=== PATIENT | female | born 1930 | race Caucasian/White ===

== ENCOUNTER 2016-12-02 11:56 | Inpatient (IN) ==
[2016-12-02] MEDS ORDERED: ONDANSETRON 4 MG/2 ML VIAL IV STA (12:50)
[2016-12-02] MEDS ORDERED: SODIUM CHLORIDE 0.9% 500 ML IV STA (12:50)
[2016-12-02 12:51] LABS: Basophils # 0.1 10*3/uL (0.0-0.2); Basophils % 1.2 % (0.0-0.8); Eosinophils # 0.2 10*3/uL (0.0-0.87); Eosinophils % 1.6 % (0.00-10.9); Hematocrit 38.3 VOL% (35.7-47.0); Hemoglobin 12.5 GM/DL (12.0-16.0); Immature Granulocytes % 0.4 %; Immature Granulocytes Absolute 0.04 #; Lymphocytes # 1.5 10*3/uL (1.4-4.0); Lymphocytes % 14.4 % (21.3-54.2); Mean Corpuscular HGB Conc 32.6 GM/DL (32-36); Mean Corpuscular Hemoglobin 28 PG (27-34); Mean Corpuscular Volume 85.3 FL (87-102); Mean Platelet Volume 11.2 FL (9.6-12.0); Monocytes # 0.9 10*3/uL (0.11-0.8); Monocytes % 8.9 % (1.7-12.7); Neutrophils # 7.6 10*3/uL (1.4-7.4); Neutrophils % 73.5 % (38.7-73.9); Platelet Count 191 T/CUMM (130-400); Red Blood Count 4.49 MC/CUMM (3.8-5.5); Red Cell Distribution Width 15.1 % (9.3-17.3); White Blood Count 10.4 T/CUMM (4-12)
[2016-12-02 12:57] LABS: PT Patient Result 10.7 SECS; Partial Thromboplastin Time 23.6 SECS (0-40)
[2016-12-02 13:06] LABS: Alanine Aminotransferase 24 U/L (13-56); Albumin 3.3 G/DL (3.4-5.0); Alkaline Phosphatase 101 U/L (45-117); Aspartate Amino Transferase 30 U/L (0-37); Blood Urea Nitrogen 23 MG/DL (7-18); Calcium 8.9 MG/DL (8.5-10.1); Glucose 120 MG/DL (74-106); Magnesium 2.1 MG/DL (1.8-2.4); Osmolality,Calculated 287.1 MOS/KG (273-304); Potassium 3.9 MMOL/L (3.5-5.1); Sodium 142 MMOL/L (136-145); Total Protein 6.8 G/DL (6.4-8.3); Troponin I Only < 0.015 NG/ML (0.00-0.045)
--- NOTE | 2016-12-02 13:07 | CT Report ---
Exam: CT scan of brain without contrast Date: 12/02/2016 Indication: Altered mental status Comparison: 10/15/2016 Patient's classification: Emergency department Technical: Images were obtained from the skull base to the vertex without the use of intravenous contrast. Dose reduction was performed with decreasing kv and mA and automated exposure Total DLP: 997.9 mGy*cm Findings: There is normal appearance of the brainstem. Some atrophy within the cerebellum. There is a large area of decreased attenuation in the right frontal parietal lobe consistent with an area of infarction. Old infarction involving the right and left basal ganglia present. Small vessel changes are present. The ventricles are mildly enlarged with atrophy. No obvious hemorrhage present. Impression: 1. Subacute infarction involving the right frontal parietal lobe without obvious hemorrhage. This appears to involve the right middle cerebral artery distribution. 2. 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 Global Atrophy Critical test report called to Dr. Cordon in the emergency room. PROCEDURE INTERPRETED AT [facility] DEPARTMENT OF RADIOLOGY Final Report Signed by: Dr. Dylon Bucio
--- NOTE | 2016-12-02 13:09 | Emergency Department Note ---
IPete Mantricia, am scribing for, and in the presence of, Luke Cordon MD 12:58. Bravo Her Charles R, MD, personally performed the services described in this documentation, ascribed by Tata Freeman in my presence, and it is both accurate and complete . Arrival - Arrival Chief Complaint: Neuro ED Nursing Triage Note: last time seen normal status was yesterday evening around 1829, family found pt this way today,. accu check 100mg/dl, gcs 10, per family normally walks, but hx of alzhiemers some normal mental status confused, pts last dose eliquis last wednesday, fell wednesday, complained of L hip pain that day Mode of Arrival: Stretcher Limitations: No Limitations Source: Patient Time Seen by Provider: 12/02/16 12:29 - History of Present Illness HPI Narrative: Pt is an 86 y/o white female carried to ED by EMS for evaluation of massive CVA. Pt was last seen normal status yesterday evening around 1829. Daughter states that yesterday family along with pt was heading back from a trip and pt was having the best time. She states that pt ate an entire burger and fries yesterday; she had never done this before. Once riding again in the car, pt dosed off and once home, daughter could not wake pt and she was stiff to move. Since being home, daughter reports that pt has not been able to move her left side. Daughter states she knew something was wrong when she checked to see if pt had tampered with her diaper through the night and she had not; that is something that she normally does. Pt's last dose of Eliquis was last Wednesday, she fell Wednesday and has complained of lower hip pain since then. Family reports that pt has had A-fib since her 30s. Intubation was discussed with family and they decided DNR. They are aware that is soon. There were no other complaints reported. y Onset (ago): hour(s) Severity: moderate Severity scale (1-10): 8 Allergies/Adverse Reactions: Allergies Allergy/AdvReac Type Severity Reaction Status Date / Time codeine Allergy Unknown/Unable Verified 10/15/16 09:07 to obtain sulfamethoxazole Allergy RASH Unverified 12/02/16 12:10 [From Bactrim] trimethoprim [From Bactrim] Allergy RASH Unverified 12/02/16 12:10 Home Medications: Home Medications Medication Instructions Recorded Confirmed Type Alendronate [Fosamax] 70 mg PO Q7DAY@0730 10/15/16 12/02/16 History Apixaban [Eliquis] 2.5 mg PO BID 10/15/16 12/02/16 History Atorvastatin [Lipitor] 20 mg PO BEDTIME 10/15/16 12/02/16 History Digoxin [Digoxin] 125 mcg PO MOWEFR 10/15/16 12/02/16 History Lisinopril [Lisinopril] 5 mg PO DAILY PRN 10/15/16 12/02/16 History Review of System - Review of System 12 point system: reviewed and no additional remarkable complaints except as stated - Review of System Constitutional: Present: other (massive CVA). Absent: chills, diaphoresis, fever Eyes: Absent: discharge, pain Head/Ears/Nose/Throat: Absent: earache, epistaxis, nasal drainage Respiratory: Absent: cough, respiratory distress, wheezing Cardiovascular: Absent: chest pain, palpitations Gastrointestinal: Absent: abdominal pain, nausea Genitourinary female: Absent: abnormal menses, dysuria Musculoskeletal: Absent: arm pain, back pain, leg pain, neck pain Skin: Absent: rash, lesions Exam Vital Signs: Vital Signs Temperature 97.4 F L 12/02/16 11:56 Pulse Rate 148 H 12/02/16 11:56 Respiratory Rate 34 H 12/02/16 11:56 Blood Pressure 162/108 12/02/16 11:56 O2 Sat by Pulse Oximetry 94 L 12/02/16 11:56 - General Exam limited due to: other (massive CVA; GCS around 8) - ENT ENT exam: Present: other (gurgling; thick sputum in mouth) - Respiratory Respiratory exam: Present: other (apneic spells) - Cardiovascular Cardiovascular exam: Present: normal rhythm, tachycardia, other (6-10 secs A-fib ) Course Course Narrative: Long talk with family patient is a DNR. She is having apneic episodes of 6-10 seconds. Patient possibly aspirated as well. Patient had a very large right- sided stroke. This was medically managed to comfort care measures. Patient is not a candidate for any type of intervention - Consultations Consultation #1: Hospitalist will admit patient for comfort care measures Time: 13:08 Results - Labs CBC & BMP: 12/02/16 12:28 12/02/16 12:28 Lab Results: I have reviewed the patients labs Labs: Laboratory Tests 12/02/16 12:28 MCV 85.3 L Lymph % (Auto) 14.4 L Baso % (Auto) 1.2 H Neut # (Auto) 7.6 H [place] # (Auto) 0.9 H Critical Care Time Critical Care Time: Yes Total Critical Care Time: 60 Disposition Clinical Impression: Cerebrovascular accident, Left sided flaccid weakness, Left-sided paralysis, Apneic episode, History of fall Case discussed with: patient, patient's family Disposition: Still a Patient Time of Disposition: 13:09
[2016-12-02] MEDS ORDERED: ONDANSETRON 4 MG/2 ML VIAL ONE (13:12)
--- NOTE | 2016-12-02 13:19 | XRay Report ---
Exam: XR chest 1V portable Date: 12/02/2016 12:40 PM Indication: Altered mental status CVA symptoms status post fall Comparison: 10/15/2016 Findings: Cardiomegaly is present. Cardiac pacing device place from a left-sided approach with a right ventricular lead. Mild shunt vascularity. There is calcification in tracheobronchial tree. Tiny low volume left effusion present. Impression: 1. Cardiomegaly low volume left effusion and cardiac pacing device with mild decompensation and mild interstitial edema PROCEDURE INTERPRETED AT [facility] DEPARTMENT OF RADIOLOGY Final Report Signed by: Dr. Dylon Bucio
--- NOTE | 2016-12-02 13:21 | XRay Report ---
Exam: XR hip 2v w pelvis LT Date: 12/02/2016 12:40 PM Indication: Left hip pain bruise secondary to fall Comparison: None AP pelvis and AP frog-leg view of the left hip 3 images Findings: Phleboliths present true pelvis. The pubic rami are intact. The femoral head and neck regions are demonstrated with single plane on the right and 2 planes on the left hip. There is soft tissue swelling over the left iliac wing. The sacrum and SI joints and iliac crest are otherwise intact. Degenerative change present on the lumbosacral spine. Impression: 1. Soft tissue swelling over the left iliac wing 2. No obvious fractures of the pelvis or left hip 3. 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 Dylon Bucio
[2016-12-02] MEDS ORDERED: ACETAMINOPHEN 325 MG SUPP RECTAL PRN (13:41)
[2016-12-02] MEDS ORDERED: MORPHINE 2 MG/1 ML SYRINGE IV PRN (13:41)
[2016-12-02 13:57] LABS: Apearance,Urine CLEAR (Clear); Bilirubin,Urine Negative (Negative); Blood, Urine Negative (Negative); Glucose,Urine (UA) Negative (Negative); Hyaline Casts,Urine 1 /LPF (0-3); Ketones,Urine Negative (Negative); Nitrite,Urine Negative (Negative); Protein,Urine Negative; RBC,Urine 1 /HPF (0-4); Urine Color Yellow (Yellow); Urine Specific Gravity 1.012 (1.001-1.035); Urine Urobilinogen < 2.0 EU/DL (0.2-1.0); WBC,Urine 1 /HPF (0-6)
--- NOTE | 2016-12-02 14:05 | Hospitalist History & Physical ---
Assessment and Plan (1) Palliative care patient Status: Acute Assessment and plan: comfort measures only. home with hospice tomorrow is her daughter's plan. palliative/hospice care. Current Visit: Yes (2) Cerebrovascular accident Status: Acute Current Visit: Yes (3) Apneic episode Status: Acute Current Visit: Yes History of Present Illness Chief complaint: stroke History of present illness: Ms. Lafleur is a 86 year old female who had a stroke yesterday between 6:30 and 7pm on her way back from a day in [place] with her daughter. At baseline she is severely demented and her speech does not always make sense, and she is sometimes able to walk with a walker or cane and other times cannot walk. She needs assistance with her ADLs. Her anticoagulation for stroke prophylaxis (afib) was stopped because she falls. When she fell asleep in the car and then had to be carried into the house without waking her daughter began to wonder if she had had a stroke. This morning when the patient had slept 14 hours and would not rouse, she called EMS to bring her to the ER. At this time Mrs Lafleur is unresponsive to voice or touch and is frequently apneic. She moved her left leg a bit spontaneously. Her daughter wants her to be comfort measures only and wants to take her home with hospice tomorrow if she can. Home Medications Medication Instructions Recorded Confirmed Type Alendronate [Fosamax] 70 mg PO Q7DAY@0730 10/15/16 12/02/16 History Apixaban [Eliquis] 2.5 mg PO BID 10/15/16 12/02/16 History Atorvastatin [Lipitor] 20 mg PO BEDTIME 10/15/16 12/02/16 History Digoxin [Digoxin] 125 mcg PO MOWEFR 10/15/16 12/02/16 History Lisinopril [Lisinopril] 5 mg PO DAILY PRN 10/15/16 12/02/16 History Allergies Allergy/AdvReac Type Severity Reaction Status Date / Time codeine Allergy Unknown/Unable Verified 10/15/16 09:07 to obtain sulfamethoxazole Allergy RASH Unverified 12/02/16 12:10 [From Bactrim] trimethoprim [From Bactrim] Allergy RASH Unverified 12/02/16 12:10 Medical,Surgical,& Family Hx - Medical History Cardio: History of: Cardiac Dysrhythmia (AFIB), Pacemaker Neurology: History of: Dementia - Family History Family History: Reports;: Family Hypertension - Social History Smoking Status: Never smoker Lives With:: Children ROS unobtainable: due to encephalopathy (from acute stroke) Exam - Constitutional General appearance: normal weight (lying propped on stretcher, mouth open, eyes closed, does not wake to voice or touch,) - Respiratory Respiratory exam: Present: rhonchi - Cardiovascular Cardiovascular exam: Present: irregular rhythm - GI/Abdominal GI/Abdominal exam: Present: normal bowel sounds, soft - Extremities Exam Extremities exam: Absent: edema - Neurological Exam Neurological exam: Present: other (moves let leg occassionally) - Skin Skin exam: Absent: warm (cool) Results - Labs CBC & BMP: 12/02/16 12:28 12/02/16 12:28 Lab Results: I have reviewed the past 24 hour labs - Diagnostic Findings Procedure: CT: image reviewed by me, report reviewed by me (subacute infarct r frontoparietal lobe, MCA distribution)
[2016-12-03 07:29] VITALS: BP 142/73
--- NOTE | 2016-12-03 08:20 | EKG Report ---
Stationary ECG Study [facility] Emergency Department ER Test Date: 12/02/2016 12:32 PM Pat Name: ADONIS BATES Department: Room: 433 Gender: F [employer]: : [id number] Requested by: Luke Nicole Order Number: [id number] Reading MD: JANINA LEÓN Intervals [place] Rate: 115 P: 999 IN: 0 QRS: 35 QRSD: 87 T: -20 QT: 328 QTc: 396 Interpretive Statements ATRIAL FIBRILLATION WITH RAPID VENTRICULAR RESPONSE SEPTAL MYOCARDIAL INFARCTION, PROBABLY OLD Electronically Signed On 12-03-16 11:18:00 CDT by JANINA LEÓN [email or web address]
--- NOTE | 2016-12-03 09:54 | Discharge Summary ---
Hospital Course - Hospital Course Hospital Course: The patient was admitted to the hospital with lethargy and aphasia. The patient was found to have large embolic stroke. Due to advanced age and risk of bleeding the patient did not receive TPA. The patient's daughter led the family consensus for hospice care with comfort measures. The patient is now ready for discharge home and appropriate counseling was performed. Discharge time including counseling and arrangements of discharge plans required 1 hour 15 minutes. - Time spent with patient Time with patient DS: Greater than 30 minutes Diagnosis - Discharge Diagnosis (1) Cerebrovascular accident Status: Acute Discharge Plan - Discharge Data Disposition: Hospice - Home Condition at Discharge: Stable - Discharge Medications New Scopolamine 1.5 mg Patch [Transderm Scop 1.5 mg/72 hr Patch] 1 patch TRANSDERM Q3DAY #4 patch LORazepam [Lorazepam Intensol] 1 mg PO Q2H PRN #60 ml PRN Reason: Agitation Morphine Sulfate [Morphine Conc Liquid] 10 mg PO Q2H PRN #100 ml PRN Reason: Pain Discontinued Atorvastatin [Lipitor] 20 mg PO BEDTIME Alendronate [Fosamax] 70 mg PO Q7DAY@0730 Lisinopril [Lisinopril] 5 mg PO DAILY PRN PRN Reason: INCREASED BP Digoxin [Digoxin] 125 mcg PO MOWEFR Apixaban [Eliquis] 2.5 mg PO BID - Follow Up or Referral - Forms/Instructions Exam - Constitutional Vitals: Period Temp Pulse Resp BP Sys/Rocha Pulse Ox Last 24 Hr 97.2 F-99.1 F 79-125 18-34 130-179/70-93 94-99 Discharge Results Labs on day of discharge: Labs from last 24 hours 12/02/16 13:39 Urine Color Yellow Urine Appearance Clear Urine pH 7.0 Ur Specific [place] 1.012 Urine Protein Negative Urine Glucose (UA) Negative Urine Ketones Negative Urine Blood Negative Urine Nitrate Negative Urine Bilirubin Negative Urine Urobilinogen < 2.0 H Urine Leukocytes Negative Urine RBC 1 Urine WBC 1 Hyaline Casts 1 Ur Culture Indicated? Not indicated DS: Provider Date of admission: 12/02/16 13:14 Primary care physician: . No PCP Attending physician on admission: Kavita Felix MD Consults: 12/03/16 09:50 Consult to Case Mgmt/Social Srvs [CONS] Routine Reason for Case Mgmt/Social Srvs: Hospice Referral Discharging clinician: Andrea Castro MD
== END 2016-12-03 15:00 | disposition hospice, home (50) | DRG 64 ==
LOC: EDBD → EDUNIT# → N.ED 11:56 → SUATTDRO 13:14 → N.EDINP 13:14 → N.4E 14:30
PROVIDERS: ADMIT Internal Medicine; ATTEND Internal Medicine